=== PATIENT | male | born 1970 | race Caucasian/White ===

== ENCOUNTER → 2024-03-14 11:29 | Emergency (ER) | payer OTHER, SELFPAY ==
[2024-03-14 11:33] VITALS: BP 141/83
--- NOTE | 2024-03-14 11:49 | ED.GENMED ---
History of Present Illness
<Giovanna Canada PA-C - Last Filed: 03/14/24 20:18>
General
Chief Complaint: Dizziness
Source: patient
Exam Limitations: none
Time Seen by Provider: 03/14/24 11:44
Nursing documentation reviewed up to this point in time: agreed with
History of Present Illness
History of Present Illness:
Patient is a 53 year old male presenting to the emergency department with evaluation of dizziness. Patient states that he has chronic neck/back problems for which she frequently stretches his back daily. He reports that yesterday when doing his
normal back stretches he turned his head to the right while on the ground or had an intense 'vertigo 'sensation endorsing significant dizziness and a slight nausea feeling. Patient states since yesterday he has had multiple episodes when he is
doing his stretches and turns his head to the right or stands up quickly where he has an intense vertigo sensation and a sustained a few falls. Fortunately�he has been able to catch himself with each fall and has not sustained any head trauma or
other injuries.
Patient denies any constant dizziness and is only noted this with very certain motions.
Review of Systems
<Giovanna Canada PA-C - Last Filed: 03/14/24 20:18>
Review of Systems
Allergies reviewed?: Yes
All Other Systems: ROS reviewed and negative except as documented in HPI and ROS
Phy Exam
<Giovanna Canada PA-C - Last Filed: 03/14/24 20:18>
Physical Exam
Physical Exam:
Vitals: Hypertensive, otherwise vital signs stable. Afebrile
General: Patient is very well appearing, no acute distress
Skin: Warm and dry, no rashes or lesions
Head: Normocephalic, atraumatic
Eyes: Sclera nonicteric. EOMs intact. Visual maurer intact. No nystagmus.
Throat: Protecting airway
Neck: Normal ROM, no cervical spine tenderness, no meningismus. No tenderness overlying bilateral carotids. No midline spinal tenderness.
Cardiac: Regular rate and rhythm, no murmurs.
Pulm: Normal respiratory effort, no wheezes, rales, rhonchi heard on exam.
Abdomen: No abdominal tenderness.
Extremities: No evidence of cyanosis or edema.
Neuro: AAOx3. CN II-XII intact. No focal neurologic deficits. Strength 5 out of 5 in upper and lower extremities. Normal hnqfxy-[id number]-ndiq. Steady gait. Fluid speech.
Psychiatric: Normal affect.
Course
<Giovanna Canada PA-C - Last Filed: 03/14/24 20:18>
Orders/Labs/Results
Orders:
Orders
03/14/24 12:15
Electrocardiogram (*1) Urgent
Reason for Study: Vertigo / Dizzy
EKG- Treatment ONCE
Orthostatic VS- Treatment ONCE
PT Consult [Pt Eval And Treat] Urgent
Treatment: Vestibular therapy; positional vertigo
Activity Level: As Tolerated
03/14/24 12:31
0.9% Sodium Chloride 1000 ml [Nss] 1,000 ml IV BOLUS
03/14/24 13:33
Basic Metabolic Panel Urgent
Complete Blood Count/With Diff Urgent
Abnormal Lab Results
03/14/24
13:33
RBC 4.28 L 10^6/uL
(4.70-6.10)
Hct 38.0 L %
(39.0-52.0)
MPV 11.2 H fL
(7.4-10.4)
Absolute Neuts (auto) 6.7 H 10^3/uL
(1.4-6.5)
Absolute Lymphs (auto) 1.0 L 10^3/uL
(1.2-3.4)
Absolute Monos (auto) 0.7 H 10^3/uL
(0.1-0.6)
Neutrophils % 79.1 H %
(42.2-75.2)
Lymphocytes % 11.5 L %
(20.5-51.1)
Glucose 114 H mg/dl
(70-99)
03/14/24 13:33
03/14/24 13:33
Vital Signs
Initial and Last Documented VS:
Initial Vital Signs
Temp Pulse Resp BP Pulse Ox
98.1 F 95 18 141/83 100
03/14/24 11:33 03/14/24 11:33 03/14/24 11:33 03/14/24 11:33 03/14/24 11:33
Last Documented Vital Signs
Temp Pulse Resp BP Pulse Ox
98.1 F 73 18 118/74 98
03/14/24 11:33 03/14/24 15:00 03/14/24 15:00 03/14/24 15:00 03/14/24 15:00
<Maricarmen Barrera MD - Last Filed: 03/16/24 22:41>
Orders/Labs/Results
Orders:
Orders
03/14/24 12:15
Electrocardiogram (*1) Urgent
Reason for Study: Vertigo / Dizzy
EKG- Treatment ONCE
Orthostatic VS- Treatment ONCE
PT Consult [Pt Eval And Treat] Urgent
Treatment: Vestibular therapy; positional vertigo
Activity Level: As Tolerated
03/14/24 12:31
0.9% Sodium Chloride 1000 ml [Nss] 1,000 ml IV BOLUS
03/14/24 13:33
Basic Metabolic Panel Urgent
Complete Blood Count/With Diff Urgent
Abnormal Lab Results
03/14/24
13:33
RBC 4.28 L 10^6/uL
(4.70-6.10)
Hct 38.0 L %
(39.0-52.0)
MPV 11.2 H fL
(7.4-10.4)
Absolute Neuts (auto) 6.7 H 10^3/uL
(1.4-6.5)
Absolute Lymphs (auto) 1.0 L 10^3/uL
(1.2-3.4)
Absolute Monos (auto) 0.7 H 10^3/uL
(0.1-0.6)
Neutrophils % 79.1 H %
(42.2-75.2)
Lymphocytes % 11.5 L %
(20.5-51.1)
Glucose 114 H mg/dl
(70-99)
03/14/24 13:33
03/14/24 13:33
Vital Signs
Initial and Last Documented VS:
Initial Vital Signs
Temp Pulse Resp BP Pulse Ox
98.1 F 95 18 141/83 100
03/14/24 11:33 03/14/24 11:33 03/14/24 11:33 03/14/24 11:33 03/14/24 11:33
Last Documented Vital Signs
Temp Pulse Resp BP Pulse Ox
98.1 F 73 18 118/74 98
03/14/24 11:33 03/14/24 15:00 03/14/24 15:00 03/14/24 15:00 03/14/24 15:00
<Giovanna Canada PA-C - Last Filed: 03/14/24 20:18>
MDM/Problems Addressed
Differential Diagnosis Includes:
Not limited to: BPPV, labyrinthitis, viral illness, orthostatic hypotension, do not carotid dissection or central neurologic process including CVA
MDM/Problems Addressed:
53-year-old male presenting with positional vertiginous symptoms since yesterday. Symptoms very intermittent and only with certain rightward turning of head. Vertiginous symptoms not constant, very short-lived when occur. Patient asymptomatic at
this time. No associated diplopia, ataxia, dysarthria. No recent trauma. No other weakness, numbness, nystagmus. Vital stable. Exam as above. Patient very well-appearing, no apparent distress. No focal neurologic deficits noted on exam.
Visual maurer intact. Normal finger-nose. Cardio/pulmonary assessment unremarkable. An EKG was obtained without any acute ischemic changes, some T wave abnormalities noted in anterior leads. Basic labs were drawn to evaluate for electrolyte
derangements. No abnormalities noted on labs. Patient was found to be mildly orthostatic�given 1 L IV fluids.
Update: PT was down to evaluate patient. PT reports positive [place]-Hallpike to right. Successful Smita maneuver with resolution of symptoms. High suspicion for BPPV.. Do not suspect central cause. Patient asymptomatic at this time, remains
well-appearing. Blood pressure normal. Patient stable for discharge with return precautions. Will provide prescription for outpatient vestibular therapy if needed. Patient seen with attending physician. Patient ambulating with steady gait out
of emergency department.
Chronic conditions affecting care:
N/A
Acute Exacerbation and/or Progression of Chronic Illness:
N/A
<Giovanna Canada PA-C - Last Filed: 03/14/24 20:18>
*Pulse Oximetry
Patient hypoxic: no
*EKG
Interpreted by ED Provider?: Yes
EKG Intrepretation Date: 03/14/24
Interpretation: abnormal
Comparison EKG: no comparison EKG present
Heart Rate: 74
Rate: normal
Rhythm: sinus
Junction: normal axis
Interval: normal interval
QRS Pattern: normal QRS
Ischemia: non-specific ST changes
*Linoleum Layer Helper Interpretation
Rate: Linoleum Layer Helper- N/A
*Critical Care Note
Total Time (30-74mins, 75-104mins- exclusive of procedures): Not Applicable
ED Attending Note
<Giovanna Canada PA-C - Last Filed: 03/14/24 20:18>
-
Portions of this chart may have been created with voice recognition software.� Occasional wrong word or��sound alike� substitutions may have occurred due to the inherent limitations of voice recognition software.
<Maricarmen Barrera MD - Last Filed: 03/16/24 22:41>
ED Attending Note
Patient seen and examined by attending physician: Yes
I performed the substantive portion of visit, reviewed & personally made and approve the management plan that is documented in note by myself or GIOVANA.: Yes
ED Attending Note:
53 yr old male was doing exercises yesterday, developed a sense of vertigo/spinning momentrilty. No trauma/n/t/focal weakness,severe headache/dipoplia/dysarthria/dyphasia. Since, then, has had a few more episodes, only with certain positions,
again short lived without assoc sxs. On exam,EOMI, no nystagmus, F to n NL, nl gait etc. Suspect periphereal vertigo. PLan for PT to see, likely d/c.
Discharge Plan
Departure
Patient Disposition: Home (Routine Discharge)
Date of Disposition: 03/14/24
Time of Disposition: 14:41
Patient with high blood pressure during this ER visit?: Yes
Condition: Good
Covid-19: Not Applicable
Discharge Problem:
Benign paroxysmal positional vertigo
Instructions: Vertigo (a type of dizziness), Vestibular Exercises, BLOOD PRESSURE
Referrals:
Brennan Hall MD [Family Provider] - As needed
Activity Restrictions/Additional Instructions:
RETURN TO THE EMERGENCY DEPARTMENT WITH ANY SEVERE HEADACHE/NECK PAIN, PERSISTENT DIZZINESS/LIGHTHEADEDNESS, SEVERE BACK PAIN, INTRACTABLE NAUSEA/VOMITING, WORSENING IN CURRENT SYMPTOMS, OR ANY OTHER CONCERNS
-It is important stay well-hydrated.
-A prescription for outpatient vestibular therapy has been provided to you. Please call with any recurrence and vertiginous symptoms. With any acute worsening/new/concerning symptoms you should return to the emergency department for further
evaluation
-You can follow-up with your primary care provider for further evaluation/management as needed
Monitor your symptoms closely and return to the emergency department with any acute worsening/new symptoms.
Interventions
Interventions:
*Risk Screen - Suicide Last Done: 03/14/24 11:33
*General Assessment Last Done: 03/14/24 11:33
*Neglect/Abuse Screening Last Done: 03/14/24 11:33
ED- Fall Risk Assessment Last Done: 03/14/24 15:00
*Nursing Disposition Last Done: 03/14/24 15:10
ED- Neurological Assessment Last Done: 03/14/24 13:30
ED- Cardiac Assessment Last Done: 03/14/24 15:10
ED Swallowing Screen Last Done: 03/14/24 13:30
Discharge Date and Time
Print Language: [id number]
[2024-03-14 12:29] VITALS: BP 107/76; BP 122/70; BP 97/83; PULSE 71; PULSE 72; PULSE 98
[2024-03-14] MEDS: NSS 1000 IV (12:40)
[2024-03-14 13:00] VITALS: BP 114/71
[2024-03-14 13:48] LABS: % Basophils 0.7 % (0-2); % Eosinophils 0.6 % (0-6); % Immature Granulocytes 0.1 % (0-0.5); % Lymphocytes 11.5 % (20.5-51.1); % Neutrophils 79.1 % (42.2-75.2); Absolute Basophils 0.1 10^3/uL (0-0.2); Absolute Eosinophils 0.1 10^3/uL (0-0.7); Absolute Monocytes 0.7 10^3/uL (0.1-0.6); Absolute Neutrophils 6.7 10^3/uL (1.4-6.5); Hemoglobin 13.2 g/dL (13.0-18.0); Mean Corp Hgb Conc. 34.7 g/dL (33.0-37.0); Mean Corpuscular Hgb 30.8 pg (27.0-31.0); Mean Corpuscular Volume 88.8 fL (80.0-94.0); Mean Platelet Volume 11.2 fL (7.4-10.4); Nucleated Red Blood Cells % 0 % (-); Platelet Count 160 10^3/uL (130-400); Red Blood Cell Count 4.28 10^6/uL (4.70-6.10); Red Cell Dist. Width 11.9 % (11.5-14.5); White Blood Cell Count 8.5 10^3/uL (4.8-10.8)
[2024-03-14 14:02] LABS: Blood Urea Nitrogen 14 mg/dl (9-20); Calcium 8.8 mg/dl (8.4-10.2); Carbon Dioxide 27 mmol/L (22-30); Chloride 107 mmol/L (98-107); Glucose 114 mg/dl (70-99); Potassium 4.1 mmol/L (3.5-5.1); Sodium 143 mmol/L (135-145); eGFR > 60.00
[2024-03-14 14:40] VITALS: BP 118/79; BP 127/72; BP 131/77; PULSE 70; O2SAT 100
[2024-03-14 15:00] VITALS: BP 118/74
== END | disposition home or self-care (01) ==
LOC: EMR 11:29
PROVIDERS: Physician Assistant; EMERGENCY PHYSICIAN Emergency Medicine; FAMILY PHYSICIAN Family Medicine
DX: H81.10 Benign paroxysmal vertigo, unspecified ear (principal)
CPT/HCPCS: 96360; 99284; 80048; 85025; 93005